=== PATIENT | female | born 1940 | race African-American/Black ===

== ENCOUNTER → 2016-07-08 | Outpatient (CLI) | payer MEDICARE, BC ==
[2016-07-08 09:26] LABS: ABSOLUTE BASOPHILS # (AUTO) 0.1 10^3/uL (0.0-0.2); ABSOLUTE EOSINOPHILS # (AUTO) 0.8 10^3/uL (0.0-0.6); ABSOLUTE LYMPHOCYTES (AUTO) 2.6 10^3/uL (0.5-4.7); ABSOLUTE NEUT (AUTO) 5.9 10^3/uL (1.7-8.2); BASOPHILS % (AUTO) 0.8 % (0-2); EOSINOPHILS % (AUTO) 7.7 % (0-6); HEMOGLOBIN 10.9 g/dL (12.0-15.5); HGB HCT DIFFERENCE -1.3; LYMPHOCYTES % (AUTO) 25.4 % (13-45); MEAN CORPUSCULAR HEMOGLOBIN 26.5 pg (27.0-33.4); MEAN CORPUSCULAR HGB CONC 32.1 g/dL (32.0-36.0); MEAN CORPUSCULAR VOLUME 83 fl (80-97); MONOCYTES % (AUTO) 9.2 % (3-13); RED BLOOD COUNT 4.11 10^6/uL (3.72-5.28); RED CELL DISTRIBUTION WIDTH 15.3 % (11.5-14.0); SEGMENTED NEUTROPHILS % (AUTO) 56.9 % (42-78); WHITE BLOOD COUNT 10.4 10^3/uL (4.0-10.5)
[2016-07-08 09:57] LABS: ALANINE AMINOTRANSFERASE 30 U/L (9-52); ALBUMIN 3.8 g/dL (3.5-5.0); ALKALINE PHOSPHATASE 136 U/L (38-126); ANION GAP 16 (5-19); ASPARTATE AMINO TRANSFERASE 16 U/L (14-36); BILIRUBIN,DIRECT 0.2 mg/dL (0.0-0.4); BILIRUBIN,TOTAL 0.3 mg/dL (0.2-1.3); BLOOD UREA NITROGEN 19 mg/dL (7-20); CALCIUM 9.4 mg/dL (8.4-10.2); CARBON DIOXIDE 27 mmol/L (22-30); CHLORIDE 104 mmol/L (98-107); CHOLESTEROL 167.72 mg/dL (0-200); CREATININE RESULT 1.08 mg/dL (0.52-1.25); Direct HDL 47 mg/dL (>40); GLUCOSE 85 mg/dL (75-110); POTASSIUM 4.2 mmol/L (3.6-5.0); SODIUM 146.7 mmol/L (137-145); TOTAL PROTEIN 6.7 g/dL (6.3-8.2); TRIGLYCERIDES 139 mg/dL (<150)
[2016-07-08 10:07] LABS: DIRECT LDL 93 mg/dL (<100)
== END ==
LOC: OD 08:17
PROVIDERS: ATTEND Internal Medicine
DX: E11.9 Type 2 diabetes mellitus without complications (principal); I10 Essential (primary) hypertension; E78.5 Hyperlipidemia, unspecified; R53.83 Other fatigue
CPT/HCPCS: 36415; 80053; 80061; 82043; 83036; 84443; 85025

== ENCOUNTER → 2016-08-13 | Outpatient (CLI) | payer MEDICARE, BC | LOC: RAD 12:11 | PROVIDERS: ATTEND Internal Medicine Nephrology | DX: N18.3 Chronic kidney disease, stage 3 (moderate) (principal); R80.9 Proteinuria, unspecified | CPT/HCPCS: 76770 ==

== ENCOUNTER → 2016-09-10 | Outpatient (CLI) | payer MEDICARE, BC ==
[2016-09-10 08:49] LABS: HEMATOCRIT 33.2 % (36.0-47.0); HEMOGLOBIN 10.6 g/dL (12.0-15.5); HGB HCT DIFFERENCE -1.4; MEAN CORPUSCULAR HEMOGLOBIN 26.4 pg (27.0-33.4); MEAN CORPUSCULAR VOLUME 82 fl (80-97); RED BLOOD COUNT 4.03 10^6/uL (3.72-5.28); RED CELL DISTRIBUTION WIDTH 14.8 % (11.5-14.0); WHITE BLOOD COUNT 11.1 10^3/uL (4.0-10.5)
[2016-09-10 09:18] LABS: ANION GAP 12 (5-19); BLOOD UREA NITROGEN 25 mg/dL (7-20); CALCIUM 9.4 mg/dL (8.4-10.2); CARBON DIOXIDE 27 mmol/L (22-30); CHLORIDE 104 mmol/L (98-107); GLUCOSE 59 mg/dL (75-110); MAGNESIUM 1.4 mg/dL (1.6-2.3); POTASSIUM 4.5 mmol/L (3.6-5.0); SODIUM 143.2 mmol/L (137-145)
[2016-09-10 10:08] LABS: APPEARANCE,URINE SLIGHTLY-CLOUDY; BILIRUBIN,URINE NEGATIVE (NEGATIVE); GLUCOSE, URINE NEGATIVE (NEGATIVE); KETONES,URINE NEGATIVE (NEGATIVE); LEUKOCYTE ESTERASE,URINE SMALL (NEGATIVE); NITRITE,URINE NEGATIVE (NEGATIVE); PROTEIN,URINE 30 mg/dL (NEGATIVE); URINE SPECIFIC GRAVITY 1.011; UROBILINOGEN,URINE NEGATIVE mg/dL (<2.0)
== END ==
LOC: OD 07:56
PROVIDERS: ATTEND Internal Medicine Nephrology
DX: E11.22 Type 2 diabetes mellitus with diabetic chronic kidney disease (principal); I12.9 Hypertensive chronic kidney disease with stage 1 through stage 4 chronic kidney disease, or unspecified chronic kidney disease; N18.3 Chronic kidney disease, stage 3 (moderate); R80.9 Proteinuria, unspecified
CPT/HCPCS: 36415; 80048; 81001; 83735; 85027

== ENCOUNTER 2016-10-26 04:45 | Inpatient (IN) | payer MEDICARE, BC, OTHER ==
--- NOTE | 2016-10-26 05:21 | ER Document Report ---
ED GI/ - General Chief Complaint: Abdominal Pain Stated Complaint: ABDOMINAL PAIN Time Seen by Provider: 10/26/16 04:57 Mode of Arrival: Ambulatory Information source: Patient Notes: 76-year-old female presents to ED with abdominal pain in the epigastric area down to the umbilicus since 1900 yesterday. She states she took some Pepto- Bismol with no relief. She denies any cardiac history. She has no nausea vomiting or diarrhea. States she is having bowel movements as normal with no constipation. TRAVEL OUTSIDE OF THE [place] IN LAST 30 DAYS: No - HPI Patient complains to provider of: Abdominal pain Onset: Yesterday Timing/Duration: Gradual, Worse Quality of pain: Sharp Severity at maximum: Moderate Severity in ED: Moderate Pain Level: 4 Location: Epigastric, LUQ, RUQ Vaginal bleeding (Compared to normal period): None Associated symptoms: denies: Chest pain, Constipation, Diarrhea, Nausea, Urinary hesitancy, Urinary frequency, Urinary retention, Urinary urgency, Vomiting Exacerbated by: Denies Relieved by: Denies Similar symptoms previously: No Recently seen / treated by doctor: Yes - Related Data Allergies/Adverse Reactions: No Known Allergies Allergy (Unverified 12/22/12 20:42) Past Medical History - General Information source: Patient - Social History Smoking Status: Never Smoker Cigarette use (# per day): No Chew tobacco use (# tins/day): No Smoking Education Provided: No Frequency of alcohol use: None Drug Abuse: None Occupation: retired Lives with: Family Family History: Arthritis, DM, Malignancy. denies: CAD, COPD, CVA, Hyperlipidemia, Hypertension, Thyroid Disfunction Patient has suicidal ideation: No Patient has homicidal ideation: No - Past Medical History Cardiac Medical History: Reports: Hx Hypertension - medicated Pulmonary Medical History: Reports: None EENT Medical History: Reports: None Neurological Medical History: Reports: None Endocrine Medical History: Reports: Hx Diabetes Mellitus Type 2, Hx Hypothyroidism Renal/ Medical History: Reports: None Malignancy Medical History: Reports: None GI Medical History: Reports: Hx Gastritis, Hx Gastroesophageal Reflux Disease, Hx Colonoscopy, Hx Endoscopy Musculoskeltal Medical History: Reports Hx Arthritis - KNEE Skin Medical History: Reports None Psychiatric Medical History: Reports: None Traumatic Medical History: Reports: None Infectious Medical History: Reports: None Past Surgical History: Reports: Hx Cholecystectomy, Hx Hysterectomy, Hx Thyroid Surgery - part of thyroid removed - Immunizations Hx Diphtheria, Pertussis, Tetanus Vaccination: No Review of Systems - Review of Systems Constitutional: No symptoms reported EENT: No symptoms reported Cardiovascular: No symptoms reported Respiratory: No symptoms reported Gastrointestinal: Abdomen distended, Abdominal pain. denies: Diarrhea, Nausea, Vomiting, Constipation, Poor appetite Genitourinary: No symptoms reported Female Genitourinary: No symptoms reported Musculoskeletal: No symptoms reported Skin: No symptoms reported Hematologic/Lymphatic: No symptoms reported Neurological/Psychological: No symptoms reported -: Yes All other systems reviewed and negative Physical Exam - Vital signs Vitals: Temp Pulse Resp BP Pulse Ox 98.8 F 109 H 20 141/85 H 97 10/26/16 04:45 10/26/16 04:45 10/26/16 04:45 10/26/16 04:45 10/26/16 04:45 Interpretation: Normal - General General appearance: Appears well, Alert - HEENT Head: Normocephalic, Atraumatic Eyes: Normal Pupils: PERRL - Respiratory Respiratory status: No respiratory distress Chest status: Nontender Breath sounds: Normal Chest palpation: Normal - Cardiovascular Rhythm: Regular Heart sounds: Normal auscultation Murmur: No - Abdominal Inspection: Normal Distension: Distended Bowel sounds: Normal Tenderness: Tender - epigastric right and left upper quadrant pain Organomegaly: No organomegaly - Back Back: Normal, Nontender - Extremities General upper extremity: Normal inspection, Nontender, Normal color, Normal ROM , Normal temperature General lower extremity: Normal inspection, Nontender, Normal color, Normal ROM , Normal temperature, Normal weight bearing. No: Tutu's sign - Neurological Neuro grossly intact: Yes Cognition: Normal Orientation: AAOx4 Raulito Coma Scale Eye Opening: Spontaneous Cromwell Coma Scale Verbal: Oriented Cromwell Coma Scale Motor: Obeys Commands Cromwell Coma Scale Total: 15 Speech: Normal Motor strength normal: LUE, RUE, LLE, RLE Sensory: Normal - Psychological Associated symptoms: Normal affect, Normal mood - Skin Skin Temperature: Warm Skin Moisture: Dry Skin Color: Normal Course - Re-evaluation Re-evalutation: 10/26/16 07:[address] Carrasco with the results of the lab and CT. CT shows a pericarditis as well as an abdominal hernia and adrenal adenoma. Patient also has an elevated white count. He stated the patient would need to be admitted. Patient's primary doctor is Al Russo MD. As hospitalist or covering suggestive it on the weekend, Dr. Cesar was consulted who stated that I should consult Dr. Fowler. Dr. Fowler consulted and patient will be admitted to [facility] for pericarditis. - Vital Signs Vital signs: Temp Pulse Resp BP Pulse Ox 98.8 F 109 H 33 H 154/81 H 97 10/26/16 04:45 10/26/16 04:45 10/26/16 06:01 10/26/16 06:01 10/26/16 06:01 - Laboratory Result Diagrams: 10/26/16 05:20 10/26/16 05:20 Laboratory results interpreted by me: 10/26/16 10/26/16 10/26/16 05:20 05:20 05:29 WBC 16.1 H Hgb 10.7 L Hct 32.8 L MCH 26.7 L RDW 15.0 H Lymphocytes % 11.0 L Absolute Neutrophils 12.4 H Absolute Monocytes 1.7 H Carbon Dioxide 21 L BUN 30 H Est GFR ( Amer) 56 L Est GFR (Non-Af Amer) 47 L Glucose 191 H Alkaline Phosphatase 148 H Urine Protein 100 H Ur Leukocyte Esterase TRACE H - Diagnostic Test Radiology reviewed: Image reviewed, Reports reviewed - EKG Interpretation by Me EKG shows normal: Sinus rhythm Discharge - Discharge Clinical Impression: Epigastric abdominal pain Pericarditis Qualifiers: Pericarditis type: unspecified type Chronicity: acute Qualified Code(s): I30.9 - Acute pericarditis, unspecified Disposition: ADMITTED INPATIENT Admitting Provider: Shelia fowler Unit Admitted: [facility]
[2016-10-26 05:44] LABS: ABSOLUTE BASOPHILS # (AUTO) 0.1 10^3/uL (0.0-0.2); ABSOLUTE EOSINOPHILS # (AUTO) 0.1 10^3/uL (0.0-0.6); ABSOLUTE LYMPHOCYTES (AUTO) 1.8 10^3/uL (0.5-4.7); ABSOLUTE MONOCYTES (AUTO) 1.7 10^3/uL (0.1-1.4); ABSOLUTE NEUT (AUTO) 12.4 10^3/uL (1.7-8.2); BASOPHILS % (AUTO) 0.6 % (0-2); EOSINOPHILS % (AUTO) 0.8 % (0-6); HEMATOCRIT 32.8 % (36.0-47.0); HEMOGLOBIN 10.7 g/dL (12.0-15.5); HGB HCT DIFFERENCE -0.7; MEAN CORPUSCULAR HEMOGLOBIN 26.7 pg (27.0-33.4); MEAN CORPUSCULAR HGB CONC 32.6 g/dL (32.0-36.0); MEAN CORPUSCULAR VOLUME 82 fl (80-97); MONOCYTES % (AUTO) 10.5 % (3-13); SEGMENTED NEUTROPHILS % (AUTO) 77.1 % (42-78); WHITE BLOOD COUNT 16.1 10^3/uL (4.0-10.5)
[2016-10-26 05:50] LABS: APPEARANCE,URINE CLEAR; BILIRUBIN,URINE NEGATIVE (NEGATIVE); GLUCOSE, URINE NEGATIVE (NEGATIVE); KETONES,URINE NEGATIVE (NEGATIVE); LEUKOCYTE ESTERASE,URINE TRACE (NEGATIVE); NITRITE,URINE NEGATIVE (NEGATIVE); PROTEIN,URINE 100 mg/dL (NEGATIVE); URINE SPECIFIC GRAVITY 1.014; UROBILINOGEN,URINE NEGATIVE mg/dL (<2.0)
[2016-10-26 06:03] LABS: ALANINE AMINOTRANSFERASE 28 U/L (9-52); ALKALINE PHOSPHATASE 148 U/L (38-126); ANION GAP 15 (5-19); ASPARTATE AMINO TRANSFERASE 17 U/L (14-36); BILIRUBIN,DIRECT 0.3 mg/dL (0.0-0.4); BILIRUBIN,TOTAL 0.4 mg/dL (0.2-1.3); BLOOD UREA NITROGEN 30 mg/dL (7-20); CALCIUM 9.5 mg/dL (8.4-10.2); CARBON DIOXIDE 21 mmol/L (22-30); CHLORIDE 106 mmol/L (98-107); CREATININE RESULT 1.13 mg/dL (0.52-1.25); GLUCOSE 191 mg/dL (75-110); LIPASE 64.9 U/L (23-300); POTASSIUM 4.5 mmol/L (3.6-5.0); TOTAL PROTEIN 7.2 g/dL (6.3-8.2)
--- NOTE | 2016-10-26 07:02 | RADIOLOGY REPORT (SQ) ---
EXAM DESCRIPTION: CT ABD/PELVIS WITH IV ONLY COMPLETED DATE/TIME: 10/26/2016 6:36 am REASON FOR STUDY: abdominal pain and distention COMPARISON: None. TECHNIQUE: CT scan of the abdomen and pelvis performed using helical scanning technique with dynamic intravenous contrast injection. No oral contrast. Images reviewed with lung, soft tissue, and bone windows. Reconstructed coronal and sagittal MPR images reviewed. Delayed images for evaluation of the urinary system also acquired. All images stored on PACS. All CT scanners at this facility use dose modulation, iterative reconstruction, and/or weight based d osing when appropriate to reduce radiation dose to as low as reasonably achievable (ALARA). [facility]: Dose Right [facility]: CareDose [facility]: Dose Right [facility]: Teradose 4D [facility]: [email or web address] CONTRAST TYPE AND DOSE: contrast/concentration: Isovue 370.00 mg/ml; Total Contrast Delivered: 100.0 ml; Total Saline Delivered: 72.0 ml RENAL FUNCTION: Creatinine 1.1 RADIATION DOSE: Up-to-date CT equipment and radiation dose reduction techniques were employed. CTDIv ol: 20.8 - 21.0 mGy. DLP: 2185 mGy-cm.. LIMITATIONS: None. FINDINGS: LOWER CHEST: No significant findings. No nodules or infiltrates. Small hiatal hernia. Mo derate pericardial fluid. LIVER: Normal size. No masses. No dilated ducts. SPLEEN: Normal size. No focal lesions. PANCREAS: No masses. No significant calcifications. No adjacent inflammation or peripancreatic fluid collections. Pancreatic duct not dilated. GALLBLADDER: Surgically absent. ADRENAL GLANDS: 1.1 cm likely left adrenal adenoma ; relative adrenal washout measures 47-67%. RIGHT KIDNEY AND URETER: No solid masses. No significant calcifications. No hydronephrosis or hyd roureter. 3.2 cm exophytic cyst medial to the right kidney. LEFT KIDNEY AND URETER: No solid masses. No significant calcifications. No hydronephrosis or hydr oureter. AORTA AND VESSELS: No aneurysm. No dissection. Renal arteries, SMA, celiac without stenosis. RETROPERITONEUM: No retroperitoneal adenopathy, hemorrhage or masses. BOWEL AND PERITONEAL CAVITY: No masses or inflammatory changes. No free fluid or peritoneal masses. APPENDIX: Normal. PELVIS: No mass. No free fluid. Normal bladder. ABDOMINAL WALL: 10 cm ventral herniation of small bowel along the midline of the anterior pelvic wall without evidence of obstruction or other complication. Smaller fat only herniation measuring 3 cm s lightly inferior to the small bowel herniation. BONES: Grade 1 degenerative L4 and L3 anterolisthesis with moderate spondylosis. A small to moderate desiccated disc bulges between the L2 and S1 levels. Moderate lower thoracic disc desiccation. OTHER: No other significant finding. IMPRESSION: 1. Small bowel herniation of the anterior pelvic wall without evidence of further compl ication. 2. Moderate pericarditis pattern. TECHNICAL DOCUMENTATION: JOB ID: [id number] Quality ID # [id number]: Final reports with documentation of one or more dose reduction techniques (e.g., Au tomated exposure control, adjustment of the mA and/or kV according to patient size, use of iterative reconstruction technique) 2010 [employer]- All Rights Reserved
[2016-10-26 08:05] LABS: TROPONIN I < 0.012 ng/mL
[2016-10-26] MEDS ORDERED: MAGNESIUM HYDROXIDE SUSP 30 ML UDCUP PO PRN (08:43)
[2016-10-26] MEDS ORDERED: ACETAMINOPHEN 325 MG TABLET PO PRN (08:43)
[2016-10-26] MEDS ORDERED: ONDANSETRON HCL INJ/PF 4 MG/2 ML SDV IV PRN (08:49)
[2016-10-26] MEDS ORDERED: KETOROLAC TROMETHAMINE INJ/PF 30 MG/1 ML SDV IV PRN (08:52)
--- NOTE | 2016-10-26 08:52 | RADIOLOGY REPORT (SQ) ---
EXAM DESCRIPTION: CHEST PA/LAT COMPLETED DATE/TIME: 10/26/2016 8:45 am REASON FOR STUDY: pericardial effusion COMPARISON: None. NUMBER OF VIEWS: Two view. TECHNIQUE: Frontal and lateral radiographic views of the chest acquired. LIMITATIONS: None. FINDINGS: LUNGS AND PLEURA: No opacities, masses or pneumothorax. No pleural effusion. MEDIASTINUM AND HILAR STRUCTURES: No masses. No contour abnormalities. HEART AND VASCULAR STRUCTURES: Heart enlarged without failure. Aorta normal for age. BONES: No acute findings. HARDWARE: None in the chest. OTHER: No other significant finding. IMPRESSION: CARDIAC ENLARGEMENT WITHOUT FAILURE. TECHNICAL DOCUMENTATION: JOB ID: [id number] [employer]- All Rights Reserved
[2016-10-26 09:19] LABS: MAGNESIUM 1.6 mg/dL (1.6-2.3)
[2016-10-26 10:09] LABS: PROTHROMBIN TIME 13.2 SEC (11.4-15.4)
[2016-10-26 10:10] LABS: PARTIAL THROMBOPLASTIN TIME 30.2 SEC (23.5-35.8)
[2016-10-26] MEDS: PANTOPRAZOLE SODIUM 40 MG VIAL IV SCH ×2 (11:11→21:30)
[2016-10-26] MEDS: ENOXAPARIN SODIUM INJ 30 MG/0.3 ML DISP.SYRIN SUBCUT SCH (11:12)
[2016-10-26] MEDS: DOCUSATE SODIUM 100 MG CAPSULE PO SCH (11:20)
[2016-10-26] MEDS ORDERED: DEXTROSE 50%-WATER 25 GM/50 ML DISP.SYRIN IV PRN ×2 (11:37)
[2016-10-26] MEDS ORDERED: DEXTROSE 40% GEL 15 GM TUBE PO PRN ×2 (11:37)
[2016-10-26] MEDS ORDERED: GLUCAGON,HUMAN RECOMB 1 MG INJ IM PRN (11:37)
[2016-10-26] MEDS ORDERED: LEVOTHYROXINE SODIUM 0.05 MG TABLET PO ONE (12:15)
[2016-10-26] MEDS: INSULIN LISPRO 100 UNIT/ML 3 ML VIAL SUBCUT PRN ×3 (12:42→22:54)
--- NOTE | 2016-10-26 12:51 | XCELERA REPORT ---
[address] [address] Transthoracic Echocardiogram Report Name: ROSEANNA HERNANDEZ Age: 76 yrs Gender: Female : 1940 Patient Status: Inpatient Patient Location: [id number] Study Date: 10/26/2016 10:30 AM Height: 61 in Weight: 220 lb BSA: 2.0 m2 Procedure: A complete two-dimensional transthoracic echocardiogram was performed (2D, M-mode, spectral and color flow Doppler). The study was technically adequate with some images being suboptimal in quality. Reason For Study: pericardial effusion; Estrella already meme'd Ordering Physician: MEHNAZ PIMENTEL Performed By: Alessia Harrison Interpretation Summary The left ventricular ejection fraction is normal. Doppler measurements suggest pseudonormalized left ventricular relaxation, which is associated with grade II/IV or mild to moderate diastolic dysfunction There is mild concentric left ventricular hypertrophy. The left ventricle is grossly normal size. Wall motion cannot be accurately commented on, but no definite regional wall motion abnormalities noted. The right ventricle is mildly dilated. The right ventricular systolic function is normal. The right atrium is normal in size The left atrial size is normal. There is no mitral valve stenosis. There is a trace amount of mitral regurgitation There is no aortic valve stenosis No aortic regurgitation is present. There is a trace to mild amount of tricuspid regurgitation There is mild pulmonary hypertension by echo Right ventricular systolic pressure is estimated to be elevated at 30- 40mmHg. The aortic root is not well visualized but is probably normal size. The inferior vena cava appeared normal and decreased > 50% with respiration (RAP 5-10 mmHg) Small pericardial effusion. There are no echocardiographic or Doppler indications for cardiac tamponade MMode/2D Measurements \T\ Calculations RVDd: 4.1 cm LVIDd: 3.4 cm FS: 32.8 % Ao root diam: 2.4 cm IVSd: 1.1 cm LVIDs: 2.3 cm EDV(Teich): 48.7 ml LVPWd: 1.1 cm ESV(Teich): 18.4 ml Ao root area: 4.5 cm2 EF(Teich): 62.3 % LA dimension: 3.1 cm Doppler Measurements \T\ Calculations MV E max hudson: MV P1/2t max hudson: Ao V2 max: LV V1 max P.0 cm/sec 79.5 cm/sec 114.0 cm/sec 4.3 mmHg MV A max hudson: MV P1/2t: 60.8 msec Ao max PG: LV V1 max: 111.6 cm/sec 5.2 mmHg 103.7 cm/sec MV E/A: 0.70 MVA(P1/2t): 3.6 cm2 MV dec slope: 382.5 cm/sec2 MV dec time: 0.20 sec PA V2 max: TR max hudson: 84.9 cm/sec 250.8 cm/sec PA max P.9 mmHgTR max P.2 mmHg Left Ventricle The left ventricle is grossly normal size. There is mild concentric left ventricular hypertrophy. The left ventricular ejection fraction is normal. Doppler measurements suggest pseudonormalized left ventricular relaxation, which is associated with grade II/IV or mild to moderate diastolic dysfunction. Wall motion cannot be accurately commented on, but no definite regional wall motion abnormalities noted. Right Ventricle The right ventricle is mildly dilated. There is normal right ventricular wall thickness. The right ventricular systolic function is normal. Atria The right atrium is normal in size. The left atrial size is normal. Interarterial septum not well visualized and not well dopplered. Cannot comment on ASD/PFO presence. Mitral Valve The mitral valve is grossly normal. There is no mitral valve stenosis. There is a trace amount of mitral regurgitation. Aortic Valve The aortic valve is grossly normal. There is no aortic valve stenosis. No aortic regurgitation is present. Tricuspid Valve The tricuspid valve is not well visualized, but is grossly normal. There is no tricuspid stenosis. There is a trace to mild amount of tricuspid regurgitation. There is mild pulmonary hypertension by echo. Right ventricular systolic pressure is estimated to be elevated at 30-40mmHg. Pulmonic Valve The pulmonic valve is not well visualized. Great Vessels The aortic root is not well visualized but is probably normal size. The inferior vena cava appeared normal and decreased > 50% with respiration (RAP 5-10 mmHg). Effusions Small pericardial effusion. There are no echocardiographic or Doppler indications for cardiac tamponade. : MEHNAZ PIMENTEL > Saroj De La Rosa
[2016-10-26 14:38] LABS: CREATINE KINASE MB 0.81 ng/mL (<4.55)
[2016-10-26 14:42] LABS: TROPONIN I < 0.012 ng/mL
--- NOTE | 2016-10-26 15:17 | EKG REPORT ---
SEVERITY:- BORDERLINE ECG - SINUS RHYTHM BORDERLINE ST ELEVATION, INFERIOR LEADS : Confirmed by: Ana Lazaro MD 26-Oct-2016 15:15:33
[2016-10-26] MEDS: NORMAL SALINE 1000 ML 1,000 ML IV PRN (15:24)
--- NOTE | 2016-10-26 15:35 | PDOC H&P ---
History of Present Illness Admission Date/PCP: 10/26/16 08:44 dr farah Patient complains of: abdominal pain History of Present Illness: ROSEANNA HERNANDEZ is a 76 year old female presents from home with sudden onset of epigastric and Rt upper abdominal pain last night after attending [employer]. states she ate chicken and veggies with her before going to [employer] and no symptoms for several hours; only after returning home did the symptoms begin. described as "hardness" across the upper abdomen with asct'd bloating and belching but no nausea or vomiting, chest pain, palpitations, POWELL, dizziness , swollen legs, calf pain, change in bowel habits or character/consistency of stool, dysuria, difficulty swallowing, recent travel, sick contacts, fevers or chills. notes relieved with Pepto and consuming cake and ice cream, worse when lying on her left side. She reports EGD by dr singleton in 05/2016 and Bx's confirmed H Pylori but she denies PUD or gastritis at the time. she was treated for 3 wks with "3 medicines, one was an abx but not sure about the rest " and underwent breath test this past friday in her office that showed eradication of the H. Pylori. 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 she's never had a SBO and is unaware of the ventral hernia seen on CT today. eval in ED shows elevated WBCs and "moderate pericardial effusion" with "moderate pericarditis pattern" though no mention of enhancing pericardium, small hiatal hernia, small bowel herniation of anterior pelvic wall without incarceration and small fat containing hernia just distal/below that also without inflammatory changes; ecg shows borderline ST elevation, J point elevation in inferolateral leads and no old for comparison. So, we were asked to admit for acute pericarditis. Past Medical History Cardiac Medical History: Reports: Hypertension - medicated Denies: Congestive Heart Failure, Coronary Artery Disease, Myocardial Infarction Pulmonary Medical History: Reports: None EENT Medical History: Reports: None Neurological Medical History: Reports: None Endocrine Medical History: Reports: Diabetes Mellitus Type 2, Hypothyroidism Renal/ Medical History: Reports: Chronic Kidney Disease - stage [address] rodrigues Malignancy Medical History: Reports: None GI Medical History: Reports: Gastroesophageal Reflux Disease, Hiatal Hernia, Other - H Pylori infection Musculoskeltal Medical History: Reports: Arthritis - KNEE Skin Medical History: Reports: None Psychiatric Medical History: Reports: None Traumatic Medical History: Reports: None Hematology: Denies: Anemia, Sickle Cell Disease Infectious Medical History: Reports: None Past Surgical History Past Surgical History: Reports: Cholecystectomy, Hysterectomy Denies: Amputation Social History Information Source: Patient Lives with: Family Smoking Status: Never Smoker Frequency of Alcohol Use: None Hx Recreational Drug Use: No Drugs: None Hx Prescription Drug Abuse: No - Advance Directive Resuscitation Status: Full Code Family History Family History: Arthritis, DM, Malignancy. denies: CAD, COPD, CVA, Hyperlipidemia, Hypertension, Thyroid Disfunction Parental Family History Reviewed: Yes Children Family History Reviewed: Yes Sibling(s) Family History Reviewed.: Yes Medication/Allergy Home Medications: Aspirin [Aspirin 81 mg Chewable Tablet] 81 mg PO DAILY 10/26/16 Carvedilol [Coreg 12.5 mg Tablet] 12.5 mg PO Q12 10/26/16 Insulin Glargine,Hum.rec.anlog [Lantus Solostar] 66 unit SQ DAILY 10/26/16 Levothyroxine Sodium [Synthroid] 50 mcg PO DAILY 10/26/16 Losartan/Hydrochlorothiazide [Hyzaar 100-25 Tablet] 1 each PO DAILY 10/26/16 Metformin HCl [Glucophage] 1,000 mg PO Q12 10/26/16 Allergies/Adverse Reactions: No Known Allergies Allergy (Unverified 12/22/12 20:42) Review of Systems All systems: reviewed and no additional remarkable complaints except as stated - all systems reviewed, see HPI, remaining systems negative Physical Exam Vital Signs: Temp Pulse Resp BP Pulse Ox 100.1 F 104 H 22 H 147/69 H 98 10/26/16 11:27 10/26/16 14:00 10/26/16 11:27 10/26/16 11:27 10/26/16 11:27 Intake & Output 10/25/16 10/26/16 10/27/16 06:59 06:59 06:59 Weight 100 kg General appearance: PRESENT: no acute distress, morbidly obese, well-developed, well-nourished Head exam: PRESENT: atraumatic, normocephalic Eye exam: PRESENT: EOMI. ABSENT: conjunctival injection, scleral icterus Mouth exam: PRESENT: moist, neck supple Neck exam: PRESENT: full ROM. ABSENT: JVD, lymphadenopathy, meningismus, tenderness, thyromegaly, tracheal deviation Respiratory exam: PRESENT: clear to auscultation hermelinda, unlabored. ABSENT: accessory muscle use, chest wall tenderness Cardiovascular exam: PRESENT: tachycardia - sinus tach on monitor Pulses: PRESENT: normal carotid pulses, normal radial pulses, normal dorsalis pedis pul Vascular exam: PRESENT: normal capillary refill GI/Abdominal exam: PRESENT: hernia - non reducible fat containing anterior wall abdominal hernia just left of the umbilicus along the long vertical scar, no overlying erythema or heat, nontender to touch, no bowel sounds in the hernia itself;, normal bowel sounds, soft, tenderness - mild epigastric and RUQ tender to palpation, other - misshapen by two long vertical scars from prior surgery, large pannus. ABSENT: ascites, distended, firm, guarding Extremities exam: PRESENT: full ROM, pedal edema - trace ankle edema. ABSENT: calf tenderness, clubbing Musculoskeletal exam: PRESENT: ambulatory, full ROM Neurological exam: PRESENT: alert, awake, oriented to person, oriented to place , oriented to time, oriented to situation Psychiatric exam: PRESENT: appropriate affect, normal mood Skin exam: PRESENT: dry, warm Results Laboratory Results: 10/26/16 10/26/16 14:05 14:05 Creatine Kinase 108 CK-MB (CK-2) 0.81 Troponin I < 0.012 Impressions: Abdomen/Pelvis CT 10/26/16 05:15 IMPRESSION: 1. Small bowel herniation of the anterior pelvic wall without evidence of further complication. 2. Moderate pericarditis pattern. Chest X-Ray 10/26/16 07:15 IMPRESSION: CARDIAC ENLARGEMENT WITHOUT FAILURE. Status: Image reviewed by me - not clear to me whether the effusion is real or artifact but no enhancing of the pericardium itself; agree with remaining exam - no clear source for her abdominal pain Assessment & Plan - Diagnosis (1) Epigastric abdominal pain Is this a current diagnosis for this admission?: YesPlan: presenting complaint and unclear etiology. her symptoms don't really fit clearly into any on thing though clearly her recent bout of H Pylori leads me to believe this is more GI than anything. she has a very atypical presentation and non specific lab findings so far. lipase and amylase are negative, LFTs negative, troponin negative while ecg is non specific, no evidence for cell or ischemia as her K and Phos both normal and only mild acidosis; cbc shows monocytosis but very mild and no worsening of her chronic anemia and no thrombocytosis or -penia. imaging is nondiagnostic and I think the pericarditis is a stretch and clearly atypical symptoms for this, certainly no evidence for tamponade; her hernia is no where near her pain and nontender on attempts to reduce it with no change in her bowel habits. will admit for bowel rest, analgesics and antiemetics, repeat abd exam and expectant management for now. ck stat CRP and lactic acid. send stool studies for culture, wbcs and occult blood. (2) Pericarditis Qualifiers: Pericarditis type: unspecified type Chronicity: acute Qualified Code(s): I30.9 - Acute pericarditis, unspecified; M06.9 - Rheumatoid arthritis, unspecified Is this a current diagnosis for this admission?: YesPlan: I do not believe she has pericarditis as her symptoms simply don't align with this diagnosis. I don't doubt that she may have a viral illness due to elevated monocytes. f/u crp, ck uric acid due to her CKD and ck echo - dr robi valentine'd. trend Ping and provide toradol for pain relief. (3) Leukocytosis, unspecified Qualifiers: Leukocytosis type: unspecified Qualified Code(s): D72.829 - Elevated white blood cell count, unspecified Is this a current diagnosis for this admission?: YesPlan: mixed bag of neutrophils and monocytes of unclear etiology and significance; certainly could be viral gastroenteritis. trend CBC, other eval as noted above (4) Obesity Qualifiers: Obesity type: unspecified obesity type Obesity classification: unspecified obesity classification Serious obesity comorbidity presence: unspecified whether serious comorbidity present Qualified Code(s): E66.9 - Obesity, unspecified Is this a current diagnosis for this admission?: YesPlan: makes for a difficult abdominal exam (6) HTN (hypertension) Qualifiers: Hypertension type: essential hypertension Qualified Code(s): I10 - Essential (primary) hypertension Is this a current diagnosis for this admission?: YesPlan: continue home regimen and titrate as needed, may hold diuretics until we sort her out a bit more (7) CKD stage 3 secondary to diabetes Is this a current diagnosis for this admission?: YesPlan: appears to be at baseline (8) Diabetes Qualifiers: Diabetes mellitus type: type 2 Diabetes mellitus complication status: with kidney complications Diabetes mellitus complication detail: with microalbuminuria Diabetes mellitus long term care pharmacist insulin use: with [facility] use Qualified Code(s): E11.29 - Type 2 diabetes mellitus with other diabetic kidney complication; R80.9 - Proteinuria, unspecified; Z79.4 - terminal manager (current) use of insulin Is this a current diagnosis for this admission?: YesPlan: hold long acting for now and cover with SSI, adjust as needed (9) Hypothyroidism Qualifiers: Hypothyroidism type: unspecified Qualified Code(s): E03.9 - Hypothyroidism, unspecified Is this a current diagnosis for this admission?: YesPlan: ck TSH and continue home meds (10) Abdominal hernia without obstruction and without gangrene Qualifiers: Hernia type: incisional Qualified Code(s): K43.2 - Incisional hernia without obstruction or gangrene Is this a current diagnosis for this admission?: YesPlan: patient was unaware of her hernia but it seems asymptomatic and doubt contributing to her presentation. will consult general surgery for their opinion on how to manage going forward. - Time Time Spent: Greater than 70 Minutes Medications reviewed and adjusted accordingly: Yes Anticipated discharge: Home Within: within 48 hours
--- NOTE | 2016-10-26 20:24 | CONSULTATION REPORT E ---
Consultation Report NAME: ROSEANNA HERNANDEZ : 1940 AGE: 76Y DATE: 10/26/2016 308 A TO: ALEJANDRO SANON M.D. FROM: MEHNAZ PIMENTEL M.D. Requesting Physician CHIEF COMPLAINT/HISTORY OF PRESENT ILLNESS: Consultation from the hospitalist group for evaluation and management of abdominal pain and chest pain. The patient was admitted through the emergency room with a history of severe abdominal pain, and abdominal pain started 1 or 2 days ago, mostly in the chest and upper chest area. After coming to emergency room, she underwent evaluation which revealed severe pericarditis on the CT scan . Incidentally she was found to have an incisional hernia in the lower abdomen so surgical consultation is to evaluate for incisional hernia. PAST MEDICAL HISTORY: 1. History of hypertension. 2. History of diabetes. 3. History of osteoarthritis. REVIEW OF SYSTEMS: As per examination. PHYSICAL EXAMINATION: GENERAL: She is awake, alert and oriented. HEAD/NECK: Revealed no lymphadenopathy or masses. RESPIRATORY: Both lungs good air entry. CARDIOVASCULAR: Both heart sounds regular. No murmurs or gallops. ABDOMINAL: She has a soft abdomen. She does have a palpable incisional hernia in the lower abdomen in the pelvic area which is reducible and nontender at this point. DIAGNOSTIC DATA: I reviewed her CT scan which revealed pericarditis and also an incisional hernia in the lower abdomen with no incarceration, no obstruction. IMPRESSION OVERALL: Incisional hernia, uncomplicated. Her pain in the chest and epigastric area is mostly from pericarditis, with no surgical issue at this point. PLAN: Conservative management only, no surgical intervention necessary at this point. We will follow the patient as needed from a surgical point. DICTATING PHYSICIAN: ALEJANDRO SANON M.D. [id number] PHY#: [id number] ID: [id number] JOB#: [id number] ACCT: [id number] cc:ALEJANDRO SANON M.D. > [facility]
[2016-10-26 20:31] LABS: CREATINE KINASE MB 0.49 ng/mL (<4.55)
[2016-10-26 20:32] LABS: TROPONIN I < 0.012 ng/mL
[2016-10-26] MEDS: CARVEDILOL 12.5 MG TABLET PO SCH (21:28)
[2016-10-27] MEDS: NORMAL SALINE 1000 ML 1,000 ML IV PRN (05:26)
[2016-10-27 05:35] LABS: ABSOLUTE EOSINOPHILS # (AUTO) 0.3 10^3/uL (0.0-0.6); ABSOLUTE LYMPHOCYTES (AUTO) 2.2 10^3/uL (0.5-4.7); ABSOLUTE MONOCYTES (AUTO) 1.7 10^3/uL (0.1-1.4); ABSOLUTE NEUT (AUTO) 8.2 10^3/uL (1.7-8.2); BASOPHILS % (AUTO) 0.2 % (0-2); EOSINOPHILS % (AUTO) 2.5 % (0-6); HEMATOCRIT 30.1 % (36.0-47.0); HEMOGLOBIN 9.8 g/dL (12.0-15.5); HGB HCT DIFFERENCE -0.7; LYMPHOCYTES % (AUTO) 17.3 % (13-45); MEAN CORPUSCULAR HEMOGLOBIN 26.8 pg (27.0-33.4); MEAN CORPUSCULAR HGB CONC 32.5 g/dL (32.0-36.0); MEAN CORPUSCULAR VOLUME 83 fl (80-97); RED BLOOD COUNT 3.65 10^6/uL (3.72-5.28); RED CELL DISTRIBUTION WIDTH 15.6 % (11.5-14.0); WHITE BLOOD COUNT 12.5 10^3/uL (4.0-10.5)
[2016-10-27 05:53] LABS: ANION GAP 9 (5-19); BLOOD UREA NITROGEN 21 mg/dL (7-20); CALCIUM 9.2 mg/dL (8.4-10.2); CARBON DIOXIDE 25 mmol/L (22-30); CHLORIDE 103 mmol/L (98-107); CREATININE RESULT 1.03 mg/dL (0.52-1.25); GLUCOSE 185 mg/dL (75-110); POTASSIUM 4.6 mmol/L (3.6-5.0); SODIUM 137.1 mmol/L (137-145); URIC ACID 8.6 mg/dL (2.5-7.5)
[2016-10-27 06:09] LABS: C-REACTIVE PROTEIN 206.9 mg/L (<10.0)
[2016-10-27] MEDS: INSULIN LISPRO 100 UNIT/ML 3 ML VIAL SUBCUT PRN ×4 (07:49→22:50)
[2016-10-27] MEDS ORDERED: IPRATROPIUM/ALBUTEROL 0.5-2.5 MG/3 ML AMPUL NEB PRN (09:02)
--- NOTE | 2016-10-27 09:12 | PDOC PROGRESS REPORT ---
Subjective Progress Note for:: 10/27/16 Subjective:: reason for visit: f/u viral illness, abdominal pain, poss pericarditis, ant abd wall hernia hospital course: ROSEANNA HERNANDEZ is a 76 year old female presents from home with sudden onset of epigastric and Rt upper abdominal pain last night after attending [employer]. states she ate chicken and veggies with her before going to [employer] and no symptoms for several hours; only after returning home did the symptoms begin. described as "hardness" across the upper abdomen with asct'd bloating and belching but no nausea or vomiting, chest pain, palpitations , POWELL, dizziness, swollen legs, calf pain, change in bowel habits or character/ consistency of stool, dysuria, difficulty swallowing, recent travel, sick contacts, fevers or chills. notes relieved with Pepto and consuming cake and ice cream, worse when lying on her left side. She reports EGD by dr singleton in 2016 and Bx's confirmed H Pylori but she denies PUD or gastritis at the time. she was treated for 3 wks with "3 medicines, one was an abx but not sure about the rest" and underwent breath test this past friday in her office that showed eradication of the H. Pylori. 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 she's never had a SBO and is unaware of the ventral hernia seen on CT today. eval in ED shows elevated WBCs and "moderate pericardial effusion" with "moderate pericarditis pattern" though no mention of enhancing pericardium, small hiatal hernia, small bowel herniation of anterior pelvic wall without incarceration and small fat containing hernia just distal/below that also without inflammatory changes; ecg shows borderline ST elevation, J point elevation in inferolateral leads and no old for comparison. So, we were asked to admit for acute pericarditis. Surgicalist consulted for the hernia but did not feel related to her presenting complaints or clinical condition and recommended expectant management only at this time. her symptoms markedly improved with conservative management of IVFs with no n/v and abd pain completely resolved within hours. she continues to deny chest pain or palpitations, fevers or chills. However she was noted to be borderline low O2 last night with mild resp distress and dyspnea while lying flat in bed. O2 placed at 1-2L/min with good improvement in her sats and complete resolution of her symptoms. ROS: all systems reviewed, see above, remaining systems negative. Physical Exam Vital Signs: Temp Pulse Resp BP Pulse Ox 99.1 F 92 16 153/63 H 98 10/27/16 04:33 10/27/16 07:00 10/27/16 04:33 10/27/16 04:33 10/27/16 04:33 Intake & Output 10/26/16 10/27/16 10/28/16 06:59 06:59 06:59 Intake Total 2907 Balance 2907 Weight 99.8 kg General appearance: PRESENT: no acute distress, morbidly obese, well-developed, well-nourished Head exam: PRESENT: atraumatic, normocephalic Eye exam: PRESENT: EOMI. ABSENT: conjunctival injection, scleral icterus Mouth exam: PRESENT: moist, neck supple Neck exam: PRESENT: full ROM. ABSENT: JVD, lymphadenopathy, tracheal deviation Respiratory exam: PRESENT: unlabored with new inspiratory crackles at the bases ; no chest wall tenderness or wheezes or antonio rales Cardiovascular exam: PRESENT: no tachycardia - sinus rhythm on monitor, review shows no alarms or arrhythmias Pulses: PRESENT: normal carotid pulses, normal radial pulses, normal dorsalis pedis pul Vascular exam: PRESENT: normal capillary refill GI/Abdominal exam: PRESENT: hernia - non reducible fat containing anterior wall abdominal hernia just left of the umbilicus along the long vertical scar, no overlying erythema or heat, nontender to touch, no bowel sounds in the hernia itself;, normal bowel sounds, soft, tenderness - no epigastric or RUQ tenderness today; other - misshapen by two long vertical scars from prior surgery, large pannus. ABSENT: ascites, distension, firmness, guarding Extremities exam: PRESENT: full ROM, pedal edema - trace ankle edema, no worse. ABSENT: calf tenderness, clubbing Musculoskeletal exam: PRESENT: ambulatory, full ROM Neurological exam: PRESENT: alert, awake, oriented to person, oriented to place , oriented to time, oriented to situation Psychiatric exam: PRESENT: appropriate affect, normal mood Skin exam: PRESENT: dry, warm Results Laboratory Results: 10/27/16 04:41 10/27/16 04:41 10/26/16 10/27/16 10/27/16 15:48 04:41 04:41 WBC 12.5 H RBC 3.65 L Hgb 9.8 L Hct 30.1 L MCV 83 MCH 26.8 L MCHC 32.5 RDW 15.6 H Plt Count 272 Seg Neutrophils % 66.0 Lymphocytes % 17.3 Monocytes % 14.0 H Eosinophils % 2.5 Basophils % 0.2 Absolute Neutrophils 8.2 Absolute Lymphocytes 2.2 Absolute Monocytes 1.7 H Absolute Eosinophils 0.3 Absolute Basophils 0.0 Sodium 137.1 Potassium 4.6 Chloride 103 Carbon Dioxide 25 Anion Gap 9 BUN 21 H Creatinine 1.03 Est GFR ( Amer) > 60 Est GFR (Non-Af Amer) 52 L Glucose 185 H Lactic Acid 1.4 Uric Acid 8.6 H Calcium 9.2 C-Reactive Protein 206.9 H 10/26/16 10/26/16 10/26/16 14:05 14:05 20:00 Creatine Kinase 108 99 CK-MB (CK-2) 0.81 Troponin I < 0.012 10/26/16 20:00 Creatine Kinase CK-MB (CK-2) 0.49 Troponin I < 0.012 Impressions: Chest X-Ray 10/26/16 07:15 IMPRESSION: CARDIAC ENLARGEMENT WITHOUT FAILURE. Assessment & Plan - Diagnosis (1) Acute hypoxemic respiratory failure Is this a current diagnosis for this admission?: YesPlan: new; no prior hx of respiratory disease or tobacco use. probably due to atelectasis based on exam and sedentary state since admission. will ck another CXR, place IS and add prn nebs to loosen her up. I suppose could be part of her viral illness, might develop viral respiratory syndrome. will chg to inpatient and continue treatment noted above. SL IVFs and increase activity (2) Viral illness Is this a current diagnosis for this admission?: YesPlan: I suspect this is source of her presentation in light of her vague symptoms, low grade temp and monocytosis on CBC. continue supportive care. increase activity today. (3) Epigastric abdominal pain Is this a current diagnosis for this admission?: YesPlan: resolved; presenting complaint and unclear etiology. her symptoms don't really fit clearly into any one thing though clearly her recent bout of H Pylori leads me to believe this is more GI than anything. she has a very atypical presentation and non specific lab findings so far. lipase and amylase are negative, LFTs negative, troponin negative while ecg is non specific, no evidence for cell or ischemia as her K and Phos both normal and only mild acidosis and lactic acid normal; cbc shows monocytosis but very mild and no worsening of her chronic anemia and no thrombocytosis or -penia. imaging is nondiagnostic and I think the pericarditis is a stretch and would be atypical symptoms for this, certainly no evidence for tamponade; her hernia is no where near her pain and nontender on attempts to reduce it with no change in her bowel habits and surgeon agrees. possible a viral gastroenteritis. advance her diet, f/u stool studies when available, continue supportive care. (4) Pericarditis Qualifiers: Pericarditis type: unspecified type Chronicity: acute Qualified Code(s): I30.9 - Acute pericarditis, unspecified; M06.9 - Rheumatoid arthritis, unspecified Is this a current diagnosis for this admission?: YesPlan: I do not believe she has pericarditis as her symptoms simply don't align with this diagnosis. I don't doubt that she may have a viral illness due to elevated monocytes. her crp is elevated but nonspecific finding unfortunately, her uric acid is slightly elevated likely due to her CKD and echo - dr rosenbaum shows no pericardial disease and only trace amount of fluid. Ping neg and CK rapidly returned to normal. d/c toradol. (5) Leukocytosis, unspecified Qualifiers: Leukocytosis type: unspecified Qualified Code(s): D72.829 - Elevated white blood cell count, unspecified Is this a current diagnosis for this admission?: YesPlan: mixed bag of neutrophils and monocytes of unclear etiology and significance; certainly could be viral gastroenteritis. trend CBC, other eval as noted above. improved with IVFs only (6) Abdominal hernia without obstruction and without gangrene Qualifiers: Hernia type: incisional Qualified Code(s): K43.2 - Incisional hernia without obstruction or gangrene Is this a current diagnosis for this admission?: YesPlan: clinically silent; per surgery no further workup or treatment warranted at this time, does not appear contributing to her presentation/symptoms (7) Obesity Qualifiers: Obesity type: unspecified obesity type Obesity classification: unspecified obesity classification Serious obesity comorbidity presence: unspecified whether serious comorbidity present Qualified Code(s): E66.9 - Obesity, unspecified Is this a current diagnosis for this admission?: Yes (9) HTN (hypertension) Qualifiers: Hypertension type: essential hypertension Qualified Code(s): I10 - Essential (primary) hypertension Is this a current diagnosis for this admission?: Yes (10) CKD stage 3 secondary to diabetes Is this a current diagnosis for this admission?: Yes (11) Diabetes Qualifiers: Diabetes mellitus type: type 2 Diabetes mellitus complication status: with kidney complications Diabetes mellitus complication detail: with microalbuminuria Diabetes mellitus director long term care insulin use: with [facility] use Qualified Code(s): E11.29 - Type 2 diabetes mellitus with other diabetic kidney complication; R80.9 - Proteinuria, unspecified; Z79.4 - meterman (current) use of insulin Is this a current diagnosis for this admission?: Yes (12) Hypothyroidism Qualifiers: Hypothyroidism type: unspecified Qualified Code(s): E03.9 - Hypothyroidism, unspecified Is this a current diagnosis for this admission?: Yes - Time Time Spent with patient: 25-34 minutes Medications reviewed and adjusted accordingly: Yes Anticipated discharge: Home Within: within 24 hours - Inpatient Certification Based on my medical assessment, after consideration of the patient's comorbidities, presenting symptoms, or acuity I expect that the services needed warrant INPATIENT care.: Yes I certify that my determination is in accordance with my understanding of Medicare's requirements for reasonable and necessary INPATIENT services [42 CFR 412.3e].: Yes Medical Necessity: Significant Comorbidiites Make Outpatient Treatment Too Risky , Need Close Monitoring Due to Risk of Patient Decompensation, Need For Continuous Telemetry Monitoring, Risk of Complication if Not Cared For in Hospital, Other - need for supplemental O2
--- NOTE | 2016-10-27 10:08 | RADIOLOGY REPORT (SQ) ---
EXAM DESCRIPTION: CHEST PA/LAT COMPLETED DATE/TIME: 10/27/2016 9:43 am REASON FOR STUDY: DYSPNEA COMPARISON: 10/26/2016 NUMBER OF VIEWS: Two view. TECHNIQUE: Frontal and lateral radiographic views of the chest acquired. LIMITATIONS: None. FINDINGS: LUNGS AND PLEURA: No opacities, masses or pneumothorax. No pleural effusion. MEDIASTINUM AND HILAR STRUCTURES: No masses. No contour abnormalities. HEART AND VASCULAR STRUCTURES: Heart enlarged without failure. Aorta normal for age. BONES: No acute findings. HARDWARE: None in the chest. OTHER: No other significant finding. IMPRESSION: CARDIAC ENLARGEMENT WITHOUT FAILURE. TECHNICAL DOCUMENTATION: JOB ID: [id number] [employer]- All Rights Reserved
[2016-10-27] MEDS: CARVEDILOL 12.5 MG TABLET PO SCH ×2 (11:08→22:04)
[2016-10-27] MEDS: PANTOPRAZOLE SODIUM 40 MG VIAL IV SCH ×2 (11:09→22:03)
[2016-10-27] MEDS: ENOXAPARIN SODIUM INJ 30 MG/0.3 ML DISP.SYRIN SUBCUT SCH (11:09)
[2016-10-27] MEDS: DOCUSATE SODIUM 100 MG CAPSULE PO SCH (11:09)
[2016-10-27] MEDS: LEVOTHYROXINE SODIUM 0.05 MG TABLET PO SCH (11:09)
[2016-10-27] MEDS ORDERED: FUROSEMIDE 20 MG TABLET PO ONE (11:57)
[2016-10-27] MEDS ORDERED: LOSARTAN POTASSIUM 50 MG TABLET PO ONE (13:00)
--- NOTE | 2016-10-27 13:42 | PDOC PROGRESS REPORT ---
Subjective Progress Note for:: 10/27/16 Subjective:: Feeling better no abdominal pain no nausea Physical Exam Vital Signs: Temp Pulse Resp BP Pulse Ox 99.3 F 97 16 137/62 H 97 10/27/16 12:10 10/27/16 12:10 10/27/16 12:10 10/27/16 12:10 10/27/16 12:10 GI/Abdominal exam: PRESENT: other - Abdomen soft nontender Reducible incisional hernia Results Impressions: Abdomen/Pelvis CT 10/26/16 05:15 IMPRESSION: 1. Small bowel herniation of the anterior pelvic wall without evidence of further complication. 2. Moderate pericarditis pattern. Chest X-Ray 10/27/16 00:00 IMPRESSION: CARDIAC ENLARGEMENT WITHOUT FAILURE. Assessment & Plan - Plan Summary Plan Summary: Uncmplicated lower abdominal hernia no surgical intervention at this time , continue with Pericarditis management follow in surgery clinic 2-3 weeks
[2016-10-28 05:07] LABS: ABSOLUTE BASOPHILS # (AUTO) 0.1 10^3/uL (0.0-0.2); ABSOLUTE EOSINOPHILS # (AUTO) 0.4 10^3/uL (0.0-0.6); ABSOLUTE MONOCYTES (AUTO) 1.6 10^3/uL (0.1-1.4); ABSOLUTE NEUT (AUTO) 8.7 10^3/uL (1.7-8.2); BASOPHILS % (AUTO) 0.6 % (0-2); EOSINOPHILS % (AUTO) 3.2 % (0-6); HEMATOCRIT 29.7 % (36.0-47.0); HEMOGLOBIN 9.9 g/dL (12.0-15.5); LYMPHOCYTES % (AUTO) 15.9 % (13-45); MEAN CORPUSCULAR HEMOGLOBIN 27.5 pg (27.0-33.4); MEAN CORPUSCULAR HGB CONC 33.2 g/dL (32.0-36.0); MEAN CORPUSCULAR VOLUME 83 fl (80-97); MONOCYTES % (AUTO) 12.1 % (3-13); RED BLOOD COUNT 3.59 10^6/uL (3.72-5.28); RED CELL DISTRIBUTION WIDTH 15.1 % (11.5-14.0); SEGMENTED NEUTROPHILS % (AUTO) 68.2 % (42-78); WHITE BLOOD COUNT 12.8 10^3/uL (4.0-10.5)
[2016-10-28 05:24] LABS: ANION GAP 11 (5-19); BLOOD UREA NITROGEN 23 mg/dL (7-20); CALCIUM 9.2 mg/dL (8.4-10.2); CARBON DIOXIDE 23 mmol/L (22-30); CHLORIDE 102 mmol/L (98-107); CREATININE RESULT 0.96 mg/dL (0.52-1.25); GLUCOSE 204 mg/dL (75-110); POTASSIUM 4.5 mmol/L (3.6-5.0); SODIUM 136.1 mmol/L (137-145)
[2016-10-28 06:00] LABS: C-REACTIVE PROTEIN 211.7 mg/L (<10.0)
[2016-10-28] MEDS: INSULIN LISPRO 100 UNIT/ML 3 ML VIAL SUBCUT PRN (07:15)
--- NOTE | 2016-10-28 09:11 | PDOC DISCHARGE SUMMARY ---
General - Admit/Disc Date/PCP Admission Date/Primary Care Provider: 10/27/16 08:50 Discharge Date: 10/28/16 - Discharge Diagnosis (1) Abdominal hernia without obstruction and without gangrene Is this a current diagnosis for this admission?: Yes (2) CKD stage 3 secondary to diabetes Is this a current diagnosis for this admission?: Yes (3) Epigastric abdominal pain Is this a current diagnosis for this admission?: Yes (4) Pericardial effusion without cardiac tamponade Is this a current diagnosis for this admission?: Yes - Additional Information Resuscitation Status: Full Code Discharge Diet: Diabetic Discharge Activity: Activity As Tolerated Home Medications: Aspirin [Aspirin 81 mg Chewable Tablet] 81 mg PO DAILY 10/26/16 Carvedilol [Coreg 12.5 mg Tablet] 12.5 mg PO Q12 10/26/16 Insulin Glargine,Hum.rec.anlog [Lantus Solostar] 66 unit SQ DAILY 10/26/16 Levothyroxine Sodium [Synthroid] 50 mcg PO DAILY 10/26/16 Losartan/Hydrochlorothiazide [Hyzaar 100-25 Tablet] 1 each PO DAILY 10/26/16 Metformin HCl [Glucophage] 1,000 mg PO Q12 10/26/16 History of Present Illness History of Present Illness: ROSEANNA HERNANDEZ is a 76 year old female Hospital Course Hospital Course: The patient did well after the hospitalization. She did not have any recurrence of abdominal pain. The accidental findings or pericardial effusion showed a small pericardial effusion on echocardiogram which was nonsignificant. The patient did not have any signs of symptoms or pericarditis. She did quite well. She had good bowel movements. She did not have any recurrence of abdominal pain Physical Exam Vital Signs: Temp Pulse Resp BP Pulse Ox 98.2 F 92 19 147/64 H 98 10/28/16 07:49 10/28/16 07:49 10/28/16 07:49 10/28/16 07:49 10/28/16 07:49 Intake & Output 10/27/16 10/28/16 10/29/16 06:59 06:59 06:59 Intake Total 1395 Balance 1395 Weight 100.3 kg General appearance: PRESENT: no acute distress Head exam: PRESENT: atraumatic Eye exam: PRESENT: conjunctiva pink Neck exam: ABSENT: carotid bruit Respiratory exam: PRESENT: clear to auscultation hermelinda Cardiovascular exam: PRESENT: RRR, +S1, +S2. ABSENT: rubs Pulses: PRESENT: +1 pedal pulses bilateral Vascular exam: PRESENT: normal capillary refill GI/Abdominal exam: PRESENT: normal bowel sounds, soft Extremities exam: PRESENT: full ROM Musculoskeletal exam: PRESENT: ambulatory Neurological exam: PRESENT: alert, awake Results Laboratory Results: 10/28/16 04:33 10/28/16 04:33 10/27/16 10/27/16 10/28/16 16:06 16:06 04:33 WBC 12.8 H RBC 3.59 L Hgb 9.9 L Hct 29.7 L MCV 83 MCH 27.5 MCHC 33.2 RDW 15.1 H Plt Count 244 Seg Neutrophils % 68.2 Lymphocytes % 15.9 Monocytes % 12.1 Eosinophils % 3.2 Basophils % 0.6 Absolute Neutrophils 8.7 H Absolute Lymphocytes 2.0 Absolute Monocytes 1.6 H Absolute Eosinophils 0.4 Absolute Basophils 0.1 Sodium Potassium Chloride Carbon Dioxide Anion Gap BUN Creatinine Est GFR ( Amer) Est GFR (Non-Af Amer) Glucose Calcium C-Reactive Protein Stool Occult Blood NEGATIVE Stool for White Cells NO WBCs SEEN 10/28/16 04:33 WBC RBC Hgb Hct MCV MCH MCHC RDW Plt Count Seg Neutrophils % Lymphocytes % Monocytes % Eosinophils % Basophils % Absolute Neutrophils Absolute Lymphocytes Absolute Monocytes Absolute Eosinophils Absolute Basophils Sodium 136.1 L Potassium 4.5 Chloride 102 Carbon Dioxide 23 Anion Gap 11 BUN 23 H Creatinine 0.96 Est GFR ( Amer) > 60 Est GFR (Non-Af Amer) 56 L Glucose 204 H Calcium 9.2 C-Reactive Protein 211.7 H Stool Occult Blood Stool for White Cells Impressions: Abdomen/Pelvis CT 10/26/16 05:15 IMPRESSION: 1. Small bowel herniation of the anterior pelvic wall without evidence of further complication. 2. Moderate pericarditis pattern. Chest X-Ray 10/27/16 00:00 IMPRESSION: CARDIAC ENLARGEMENT WITHOUT FAILURE.
[2016-10-28] MEDS: LEVOTHYROXINE SODIUM 0.05 MG TABLET PO SCH (09:57)
[2016-10-28] MEDS: DOCUSATE SODIUM 100 MG CAPSULE PO SCH (09:57)
[2016-10-28] MEDS: PANTOPRAZOLE SODIUM 40 MG VIAL IV SCH (09:58)
[2016-10-28] MEDS: ENOXAPARIN SODIUM INJ 30 MG/0.3 ML DISP.SYRIN SUBCUT SCH (09:58)
[2016-10-28] MEDS: CARVEDILOL 12.5 MG TABLET PO SCH (09:58)
[2016-10-28] MEDS ORDERED: LOSARTAN POTASSIUM 50 MG TABLET PO SCH (10:00)
[2016-10-28 10:22] VITALS: BP 150/81
== END 2016-10-28 11:17 | disposition home or self-care (01) | DRG 394 ==
LOC: ER 04:45 → UNDOADMIN 07:56 → EH 07:56 → 3N 08:44 → INTOOBSV 08:44 → 3N 09:06 → EH 09:06 → OBSVTOIN 10-27 08:50
PROVIDERS: ADMIT Internal Medicine; ATTEND Internal Medicine
DX: K43.2 Incisional hernia without obstruction or gangrene (principal); I31.3 Pericardial effusion (noninflammatory); Z68.41 Body mass index [BMI] 40.0-44.9, adult; E66.9 Obesity, unspecified; I12.9 Hypertensive chronic kidney disease with stage 1 through stage 4 chronic kidney disease, or unspecified chronic kidney disease; E11.22 Type 2 diabetes mellitus with diabetic chronic kidney disease; N18.3 Chronic kidney disease, stage 3 (moderate); E03.9 Hypothyroidism, unspecified; K21.9 Gastro-esophageal reflux disease without esophagitis; K44.9 Diaphragmatic hernia without obstruction or gangrene; M19.90 Unspecified osteoarthritis, unspecified site; Z79.4 Long term (current) use of insulin; Z79.84 Long term (current) use of oral hypoglycemic drugs; Z79.899 Other long term (current) drug therapy; Z79.82 Long term (current) use of aspirin; Z90.49 Acquired absence of other specified parts of digestive tract; Z90.710 Acquired absence of both cervix and uterus
CPT/HCPCS: 36415; 71020; 74177; 80048; 80053; 81001; 82150; 82272; 82550; 82553; 82962; 83036; 83605; 83690; 83735; 83880; 84100; 84443; 84484; 84550; 85025; 85610; 85730; 86140; 87045; 87205; 89055; 93005; 93010; 93306; 94799; 99285; G0378; J1650; J1815; J3490; J7030; S0164

== ENCOUNTER → 2016-12-27 | Outpatient (CLI) | payer MEDICARE, BC, OTHER ==
[2016-12-27 09:14] LABS: ABSOLUTE BASOPHILS # (AUTO) 0.1 10^3/uL (0.0-0.2); ABSOLUTE EOSINOPHILS # (AUTO) 0.3 10^3/uL (0.0-0.6); ABSOLUTE LYMPHOCYTES (AUTO) 2.5 10^3/uL (0.5-4.7); ABSOLUTE NEUT (AUTO) 9.7 10^3/uL (1.7-8.2); BASOPHILS % (AUTO) 0.8 % (0-2); EOSINOPHILS % (AUTO) 2.1 % (0-6); HEMATOCRIT 32.7 % (36.0-47.0); HEMOGLOBIN 10.8 g/dL (12.0-15.5); HGB HCT DIFFERENCE -0.3; LYMPHOCYTES % (AUTO) 18.2 % (13-45); MEAN CORPUSCULAR HEMOGLOBIN 26.7 pg (27.0-33.4); MEAN CORPUSCULAR HGB CONC 32.9 g/dL (32.0-36.0); MEAN CORPUSCULAR VOLUME 81 fl (80-97); MONOCYTES % (AUTO) 7.5 % (3-13); RED BLOOD COUNT 4.03 10^6/uL (3.72-5.28); RED CELL DISTRIBUTION WIDTH 16.3 % (11.5-14.0); SEGMENTED NEUTROPHILS % (AUTO) 71.4 % (42-78); WHITE BLOOD COUNT 13.6 10^3/uL (4.0-10.5)
[2016-12-27 09:39] LABS: ALANINE AMINOTRANSFERASE 25 U/L (9-52); ALBUMIN 3.8 g/dL (3.5-5.0); ALKALINE PHOSPHATASE 152 U/L (38-126); ANION GAP 12 (5-19); ASPARTATE AMINO TRANSFERASE 15 U/L (14-36); BILIRUBIN,DIRECT 0.3 mg/dL (0.0-0.4); BILIRUBIN,TOTAL 0.3 mg/dL (0.2-1.3); BLOOD UREA NITROGEN 25 mg/dL (7-20); CARBON DIOXIDE 27 mmol/L (22-30); CHLORIDE 103 mmol/L (98-107); CHOLESTEROL 166.77 mg/dL (0-200); CREATININE RESULT 1.17 mg/dL (0.52-1.25); Direct HDL 48 mg/dL (>40); GLUCOSE 157 mg/dL (75-110); POTASSIUM 4.7 mmol/L (3.6-5.0); SODIUM 142.1 mmol/L (137-145); TOTAL PROTEIN 6.8 g/dL (6.3-8.2); TRIGLYCERIDES 135 mg/dL (<150)
[2016-12-27 09:49] LABS: DIRECT LDL 93 mg/dL (<100)
== END ==
LOC: OD 08:07
PROVIDERS: ATTEND Internal Medicine
DX: E11.9 Type 2 diabetes mellitus without complications (principal); E78.5 Hyperlipidemia, unspecified; I10 Essential (primary) hypertension; R53.83 Other fatigue
CPT/HCPCS: 36415; 80053; 80061; 83036; 84443; 85025

== ENCOUNTER → 2017-02-13 | Outpatient (CLI) | payer MEDICARE, BC ==
--- NOTE | 2017-02-13 16:13 | WOMENS IMAGING REPORT ---
EXAM DESCRIPTION: BILAT SCREENING MAMMO W/CAD COMPLETED DATE/TIME: 02/13/2017 10:17 am REASON FOR STUDY: SCREENING MAMMO Z12.31 ENCNTR SCREEN MAMMOGRAM FOR MALIGNANT NEOPLASM OF EVELINA COMPARISON: [id number] TECHNIQUE: Standard craniocaudal and mediolateral oblique views of each breast recorded using digita l acquisition. LIMITATIONS: None. FINDINGS: RIGHT BREAST MASSES: No suspicious masses. CALCIFICATIONS: No new or suspicious calcifications. ARCHITECTURAL DISTORTION: None. DEVELOPING DENSITY: None. ASYMMETRY: None noted. OTHER: No other significant findings. LEFT BREAST MASSES: No suspicious masses. CALCIFICATIONS: Approximately 4 o'clock about 9 cm deep to the nipple. ARCHITECTURAL DISTORTION: None. DEVELOPING DENSITY: None. ASYMMETRY: None noted. OTHER: No other significant findings. Read with the assistance of CAD. .[facility] - R2 Cenova Version 1.3 .[facility] Imaging - R2 Cenova Version 1.3 .[facility] Imaging - R2 Cenova Version 2.4 .[facility] - R2 Cenova Version 2.4 .[facility] - R2 Facility Maintenance Technician Version 9.2 IMPRESSION: Calcifications left breast. BREAST DENSITY: b. There are scattered areas of fibroglandular density. BIRAD: 0 Incomplete: Needs Additional Imaging Evaluation and/or prior Mammograms for Comparison. RECOMMENDATION: RECOMMENDED FOLLOW-UP: True lateral and magnification views of the left breast. The patient will be contacted for additional imaging. COMMENT: The patient has been notified of the results by letter per SA requirements. Additional no tification policies are in place for contacting patient with suspicious or incomplete findings. Quality ID #[id number]: The [employer] recommends an annual screening mammogram for women aged 40 years or over. This facility utilizes a reminder system to ensure that all patients receive reminder letters, and/or direct phone calls for appointments. This includes reminders for routine scr eening mammograms, diagnostic mammograms, or other Breast Imaging Interventions when appropriate. Th is patient will be placed in the appropriate reminder system. The [employer] (ACR) has developed recommendations for screening MRI of the breast s in certain patient populations, to be used in conjunction with mammography. Breast MRI surveillanc e may be appropriate for women with more than 20% lifetime risk of developing breast cancer as deter mined by genetic testing, significant family history of the disease, or history of mantle radiation f or Hodgkins Disease. ACR Practice Guidelines 2008. TECHNICAL DOCUMENTATION: FINDING NUMBER: (1) ASSESSMENT: (1) JOB ID: [id number] [facility]- All Rights Reserved
== END ==
LOC: WI 09:51
PROVIDERS: ATTEND Obstetrics & Gynecology Gynecology
DX: Z12.31 Encounter for screening mammogram for malignant neoplasm of breast (principal)
CPT/HCPCS: 77067; G0202

== ENCOUNTER → 2017-03-05 | Outpatient (CLI) | payer MEDICARE, BC ==
--- NOTE | 2017-03-06 13:47 | WOMENS IMAGING REPORT ---
EXAM DESCRIPTION: LEFT DIAGNOSTIC MAMMO W/CAD COMPLETED DATE/TIME: 03/05/2017 9:59 am REASON FOR STUDY: CALCIFICATIONS; R92.0 R92.2 INCONCLUSIVE MAMMOGRAM COMPARISON: 02/13/2017, 02/12/2016, 02/09/2015, 12/22/2013, 12/21/2012. TECHNIQUE: Additional images include a true lateral image and magnification MLO and CC images. LIMITATIONS: None. FINDINGS: BREAST: left MASSES: No suspicious masses. CALCIFICATIONS: Calcifications in the lower outer quadrant. On magnification views these are fairly discrete and relatively coarse. These have slowly progressed over the past several years. ARCHITECTURAL DISTORTION: None. DEVELOPING DENSITY: None. ASYMMETRY: None noted. OTHER: No other significant findings. IMPRESSION: Calcifications in the lower outer left breast which are not particularly pleomorphic but have gradually increased over several years. Biopsy should be considered. BREAST DENSITY: b. There are scattered areas of fibroglandular density. BIRAD: 4A-Suspicious abnormality: Lesion which may require intervention with low suspicion for pablo garcia. RECOMMENDATION: RECOMMENDED FOLLOW UP: Birads 4: Biopsy should be performed in the absence of clinic al contraindication. SPECIFIC INTERVENTION/IMAGING/CONSULTATION RECOMMENDED:The suspicious finding(s) amenable to stereo-t actic-guided vacuum assisted core biopsy. COMMUNICATION:The imaging findings were not discussed with the patient. Her referring provider has be en notified of the findings. COMMENT: The patient has been notified of the results by letter per SA requirements. Additional no tification policies are in place for contacting patient with suspicious or incomplete findings. Quality ID #[id number]: The [employer] recommends an annual screening mammogram for women aged 40 years or over. This facility utilizes a reminder system to ensure that all patients receive reminder letters, and/or direct phone calls for appointments. This includes reminders for routine scr eening mammograms, diagnostic mammograms, or other Breast Imaging Interventions when appropriate. Th is patient will be placed in the appropriate reminder system. The [employer] (ACR) has developed recommendations for screening MRI of the breast s in certain patient populations, to be used in conjunction with mammography. Breast MRI surveillanc e may be appropriate for women with more than 20% lifetime risk of developing breast cancer as deter mined by genetic testing, significant family history of the disease, or history of mantle radiation f or Hodgkins Disease. ACR Practice Guidelines 2008. TECHNICAL DOCUMENTATION: FINDING NUMBER: (1) ASSESSMENT: (1) JOB ID: [id number] [employer]- All Rights Reserved
== END ==
LOC: WI 08:45
PROVIDERS: ATTEND Obstetrics & Gynecology Gynecology
DX: R92.0 Mammographic microcalcification found on diagnostic imaging of breast (principal)
CPT/HCPCS: G0206-52

== ENCOUNTER → 2017-05-08 | Day surgery (SDC) | payer MEDICARE, BC ==
--- NOTE | 2017-05-08 10:36 | Operative Report ---
Operative Report DATE OF SURGERY: 05/08/17 PREOPERATIVE DIAGNOSIS: Microcalcifications central aspect left breast. Microcalcifications in the central aspect left breast POSTOPERATIVE DIAGNOSIS: Same OPERATION: 1. Stereotactically directed incisional myotomy core biopsies left breast microcalcifications. 2. Placement of clip marker. 3. Interpretation of specimen radiograph, and intraoperative mammography SURGEON: AMBER COCHRAN ANESTHESIA: Local TISSUE REMOVED OR ALTERED: Coarse left breast INTRAOPERATIVE FINDINGS: None PROCEDURE: Patient was seen in the holding area then taken to the radiology suite where the patient was placed in supine position, left arm abducted, left breast placed in compression. The central cluster of microcalcifications was localized using a caudal cranial approach. The left breast placed in compression. Surgical plan surgical timeout were conducted. Surface of the left breast was prepped with Betadine and anesthetized 1% plain lidocaine. Mammotomy was made with 11 blade, mammotome advanced the appropriate depth. Pre-and post fire films showed good alignment between the microcalcifications in the mammotome. We performed a series of core biopsies approximately 13 cores obtained in a circumferential fashion, well tolerated by the patient, and no significant bleeding. Specimens placed on a core tainer, imaged using the portable imaging device, with retention of microcalcifications in the target specimens. Placed a post biopsy clip marker into the biopsy cavity, with post deployment imaging showing retention of clip in the breast cavity. Mammotome was removed, patient tolerated procedure well. Localize compression continued to the left breast. Discharge instructions provided.
--- NOTE | 2017-05-08 10:37 | PDOC DISCHARGE SUMMARY ---
Discharge Summary (SDC) - Discharge Final Diagnosis: Microcalcifications left breast Date of Surgery: 05/08/17 Discharge Date: 05/08/17 Condition: Good Treatment or Instructions: Patient will be discharged home; instructed to wear supportive bra; take Tylenol Motrin as needed pain; follow-up with Dr. Obrien [place] [facility] in 1-2 weeks. Referrals: AMBER OBRIEN MD [Primary Care Provider] - Discharge Diet: As Tolerated Discharge Activity: Activity As Tolerated Home Care Assistance: None Needed Report the Following to Your Physician Immediately: Shortness of Breath, Increase in Pain, Fever over 101 Degrees
--- NOTE | 2017-05-20 08:53 | WOMENS IMAGING REPORT ---
EXAM DESCRIPTION: STEREO BREAST BX; LEFT DIG DX MAMMO NO CHG COMPLETED DATE/TIME: 05/08/2017 11:24 am; 05/08/2017 11:25 am REASON FOR STUDY: R92.0 MAMMOGRAPHIC MICROCALCIFICATION FOUND ON DX IMAGING OF BRST; POST LT STEREO R92.0 MAMMOGRAPHIC MICROCALCIFICATION FOUND ON DX IMAGING OF COMPARISON: Multiple previous LIMITATIONS: None. PROCEDURE: Vacuum-assisted stereotactic-guided biopsy of the lesion in the left breast performed by Dr. Obrien who also targeted the lesion. Using stereotactic guidance, a vacuum-assisted core biopsy of the targeted lesion was performed. A p ellet clip was deployed at the biopsy site. Post procedure image reveals the clip at the biopsy site . TECHNIQUE: Images from the stereotactic unit acquired during the procedure. Specimen radiography performed. Yes. Post- procedure image acquired post-clip placement. Yes. Post procedure 2 view mammograms performed in the mammography suite. Yes. FINDINGS: SPECIMEN RADIOGRAPH:Calcifications identified.. POST PROCEDURE MAMMOGRAMS FOR MARKER PLACEMENT: Yes. POST PROCEDURE MAMMOGRAM: Clip is in expected location. No significant hematoma. PATHOLOGY: Sclerosing fibroadenoma CONCORDANT: Yes. The operating surgeon was notified of the findings. IMPRESSION: SUCCESSFUL STEREOTACTIC-GUIDED BIOPSY OF LESION IN THE LEFT BREAST. BIOPSY RESULTS ARE CONCORDANT WITH IMAGING FINDINGS. FOLLOW-UP: RETURN TO SCREENING COMMENT: BI-RADS 2 Benign findings. TECHNICAL DOCUMENTATION: JOB ID: [id number] [employer]- All Rights Reserved
== END ==
LOC: RAD 09:11
PROVIDERS: ATTEND Surgery
PROC: 0HBU3ZX Excision of Left Breast, Percutaneous Approach, Diagnostic (ICD-10-PCS; principal; 2017-05-08)
DX: R92.0 Mammographic microcalcification found on diagnostic imaging of breast (principal); D24.2 Benign neoplasm of left breast
CPT/HCPCS: 19081; 88305

== ENCOUNTER → 2017-07-28 | Outpatient (CLI) | payer MEDICARE, BC ==
[2017-07-28 08:50] LABS: ABSOLUTE EOSINOPHILS # (AUTO) 0.3 10^3/uL (0.0-0.6); ABSOLUTE LYMPHOCYTES (AUTO) 2.1 10^3/uL (0.5-4.7); ABSOLUTE NEUT (AUTO) 6.9 10^3/uL (1.7-8.2); BASOPHILS % (AUTO) 0.3 % (0-2); EOSINOPHILS % (AUTO) 2.8 % (0-6); HEMATOCRIT 33.7 % (36.0-47.0); HEMOGLOBIN 10.9 g/dL (12.0-15.5); LYMPHOCYTES % (AUTO) 20.7 % (13-45); MEAN CORPUSCULAR HEMOGLOBIN 26.9 pg (27.0-33.4); MEAN CORPUSCULAR HGB CONC 32.3 g/dL (32.0-36.0); MEAN CORPUSCULAR VOLUME 83 fl (80-97); MONOCYTES % (AUTO) 9.4 % (3-13); PLATELET COUNT 308 10^3/uL (150-450); RED BLOOD COUNT 4.06 10^6/uL (3.72-5.28); SEGMENTED NEUTROPHILS % (AUTO) 66.8 % (42-78); TOTAL CELLS COUNTED % (AUTO) 100 %; WHITE BLOOD COUNT 10.4 10^3/uL (4.0-10.5)
[2017-07-28 09:06] LABS: ALANINE AMINOTRANSFERASE 24 U/L (9-52); ALKALINE PHOSPHATASE 133 U/L (38-126); ANION GAP 14 (5-19); ASPARTATE AMINO TRANSFERASE 17 U/L (14-36); BILIRUBIN,DIRECT 0.2 mg/dL (0.0-0.4); BILIRUBIN,TOTAL 0.2 mg/dL (0.2-1.3); BLOOD UREA NITROGEN 36 mg/dL (7-20); CALCIUM 9.4 mg/dL (8.4-10.2); CARBON DIOXIDE 32 mmol/L (22-30); CHLORIDE 100 mmol/L (98-107); CHOLESTEROL 193.59 mg/dL (0-200); GLUCOSE 117 mg/dL (75-110); POTASSIUM 4.2 mmol/L (3.6-5.0); SODIUM 145.6 mmol/L (137-145); TRIGLYCERIDES 255 mg/dL (<150)
[2017-07-28 09:17] LABS: DIRECT LDL 107 mg/dL (<100)
== END ==
LOC: OD 07:54
PROVIDERS: ATTEND Family Medicine Geriatric Medicine
DX: E78.5 Hyperlipidemia, unspecified (principal); E11.9 Type 2 diabetes mellitus without complications; I10 Essential (primary) hypertension; M19.90 Unspecified osteoarthritis, unspecified site; R53.83 Other fatigue; K21.9 Gastro-esophageal reflux disease without esophagitis
CPT/HCPCS: 36415; 80053; 80061; 83036; 84443; 85025

== ENCOUNTER → 2017-10-28 | Outpatient (CLI) | payer MEDICARE, BC ==
[2017-10-28 13:50] LABS: HEMATOCRIT 33.6 % (36.0-47.0); HEMOGLOBIN 10.7 g/dL (12.0-15.5); MEAN CORPUSCULAR HEMOGLOBIN 26.2 pg (27.0-33.4); MEAN CORPUSCULAR HGB CONC 31.8 g/dL (32.0-36.0); MEAN CORPUSCULAR VOLUME 83 fl (80-97); PLATELET COUNT 355 10^3/uL (150-450); RED BLOOD COUNT 4.08 10^6/uL (3.72-5.28); RED CELL DISTRIBUTION WIDTH 15.1 % (11.5-14.0); WHITE BLOOD COUNT 12.2 10^3/uL (4.0-10.5)
[2017-10-28 13:56] LABS: APPEARANCE,URINE CLEAR; BILIRUBIN,URINE NEGATIVE (NEGATIVE); COLOR,URINE YELLOW; GLUCOSE, URINE NEGATIVE (NEGATIVE); KETONES,URINE NEGATIVE (NEGATIVE); LEUKOCYTE ESTERASE,URINE TRACE (NEGATIVE); NITRITE,URINE NEGATIVE (NEGATIVE); PROTEIN,URINE NEGATIVE (NEGATIVE); URINE SPECIFIC GRAVITY 1.009; UROBILINOGEN,URINE NEGATIVE mg/dL (<2.0)
[2017-10-28 14:01] LABS: ANION GAP 16 (5-19); BLOOD UREA NITROGEN 29 mg/dL (7-20); CALCIUM 9.6 mg/dL (8.4-10.2); CARBON DIOXIDE 29 mmol/L (22-30); CHLORIDE 100 mmol/L (98-107); GLUCOSE 108 mg/dL (75-110); POTASSIUM 4.6 mmol/L (3.6-5.0); SODIUM 144.9 mmol/L (137-145)
== END ==
LOC: OD 13:10
PROVIDERS: ATTEND Internal Medicine Nephrology
DX: N18.3 Chronic kidney disease, stage 3 (moderate) (principal); E11.9 Type 2 diabetes mellitus without complications; E83.42 Hypomagnesemia; R80.9 Proteinuria, unspecified
CPT/HCPCS: 36415; 80048; 81001; 83735; 85027

== ENCOUNTER → 2017-10-31 | Outpatient (CLI) | payer MEDICARE, BC | LOC: OD 13:46 | PROVIDERS: ATTEND Internal Medicine Nephrology | DX: E83.42 Hypomagnesemia (principal) | CPT/HCPCS: 36415; 83735 ==

== ENCOUNTER → 2017-11-18 | Outpatient (CLI) | payer MEDICARE, BC ==
--- NOTE | 2017-11-18 13:35 | WOMENS IMAGING REPORT ---
EXAM DESCRIPTION: LEFT DIAGNOSTIC MAMMO W/CAD COMPLETED DATE/TIME: 11/18/2017 10:22 am REASON FOR STUDY: MICROCALCIFICATIONS R92.0 MAMMOGRAPHIC MICROCALCIFICATION FOUND ON DX IMAGING OF COMPARISON: Multiple since 2008 TECHNIQUE: Standard craniocaudal, 90 mediolateral and mediolateral oblique images of the breast rec orded with digital acquisition. LIMITATIONS: None. FINDINGS: BREAST: Left MASSES: No suspicious masses. CALCIFICATIONS: Benign breast parenchymal calcifications are present. Stereotactic biopsy clip in th e deep central left breast ARCHITECTURAL DISTORTION: None. DEVELOPING DENSITY: None. ASYMMETRY: None noted. OTHER: No other significant findings. Read with the assistance of CAD. .[facility] - R2 Cenova Version 1.3 .[facility] Imaging - R2 Cenova Version 1.3 .[facility] Imaging - R2 Cenova Version 2.4 .[facility] - R2 Cenova Version 2.4 .[facility] - R2 International Controller Version 9.2 IMPRESSION: No mammographic evidence for malignancy left breast BREAST DENSITY: Choose BIRAD: 2 Benign findings. RECOMMENDATION: RECOMMENDED FOLLOW UP: Please continue yearly bilateral mammographic/tomosynthesis s creening in January 2018. SPECIFIC INTERVENTION/IMAGING/CONSULTATION RECOMMENDED:No additional intervention/ imaging/consultati on needed at this time. COMMUNICATION:Patient notified by letter COMMENT: The patient has been notified of the results by letter per SA requirements. Additional no tification policies are in place for contacting patient with suspicious or incomplete findings. Quality ID #[id number]: The [employer] recommends an annual screening mammogram for women aged 40 years or over. This facility utilizes a reminder system to ensure that all patients receive reminder letters, and/or direct phone calls for appointments. This includes reminders for routine scr eening mammograms, diagnostic mammograms, or other Breast Imaging Interventions when appropriate. Th is patient will be placed in the appropriate reminder system. The [employer] (ACR) has developed recommendations for screening MRI of the breast s in certain patient populations, to be used in conjunction with mammography. Breast MRI surveillanc e may be appropriate for women with more than 20% lifetime risk of developing breast cancer as deter mined by genetic testing, significant family history of the disease, or history of mantle radiation f or Hodgkins Disease. ACR Practice Guidelines 2008. TECHNICAL DOCUMENTATION: FINDING NUMBER: (1) ASSESSMENT: (1) JOB ID: [id number] [employer]- All Rights Reserved Reading location - IP/workstation name: [email or web address]
== END ==
LOC: WI 09:54
PROVIDERS: ATTEND Surgery
DX: R92.0 Mammographic microcalcification found on diagnostic imaging of breast (principal)

== ENCOUNTER → 2017-12-05 | Outpatient (CLI) | payer MEDICARE, BC ==
[2017-12-05 14:03] LABS: HEMATOCRIT 33.6 % (36.0-47.0); MEAN CORPUSCULAR HEMOGLOBIN 26.9 pg (27.0-33.4); MEAN CORPUSCULAR HGB CONC 32.7 g/dL (32.0-36.0); MEAN CORPUSCULAR VOLUME 82 fl (80-97); PLATELET COUNT 368 10^3/uL (150-450); RED CELL DISTRIBUTION WIDTH 14.7 % (11.5-14.0)
[2017-12-05 14:34] LABS: ANION GAP 13 (5-19); BLOOD UREA NITROGEN 39 mg/dL (7-20); CALCIUM 10.4 mg/dL (8.4-10.2); CARBON DIOXIDE 32 mmol/L (22-30); CHLORIDE 99 mmol/L (98-107); GLUCOSE 46 mg/dL (75-110); POTASSIUM 4.8 mmol/L (3.6-5.0); SODIUM 143.6 mmol/L (137-145)
== END ==
LOC: OD 12:53
PROVIDERS: ATTEND Internal Medicine Nephrology
DX: N18.3 Chronic kidney disease, stage 3 (moderate) (principal); E11.9 Type 2 diabetes mellitus without complications; D64.9 Anemia, unspecified; E83.42 Hypomagnesemia
CPT/HCPCS: 36415; 80048; 83735; 85027

== ENCOUNTER → 2018-02-24 | Outpatient (CLI) | payer MEDICARE, BC ==
--- NOTE | 2018-02-24 12:06 | WOMENS IMAGING REPORT ---
EXAM DESCRIPTION: 3D SCREENING MAMMO BILAT COMPLETED DATE/TIME: 02/24/2018 11:03 am REASON FOR STUDY: BILATERAL SCREENING MAMMO 3D/ Z12.31 Z12.31 ENCNTR SCREEN MAMMOGRAM FOR MALIGNANT NEOPLASM OF EVELINA COMPARISON: Multiple since 2008 TECHNIQUE: Standard craniocaudal and mediolateral oblique views of each breast recorded using digita l acquisition and breast tomosynthesis. LIMITATIONS: None. FINDINGS: No masses, calcifications or architectural distortion. No areas of suspicion. Read with the assistance of CAD. .[facility] - R2 Cenova Version 1.3 .[facility] Imaging - R2 Cenova Version 1.3 .[facility] Imaging - R2 Cenova Version 2.4 .[facility] - R2 Cenova Version 2.4 .[facility] - R2 Territory Account Executive Version 9.2 IMPRESSION: NORMAL MAMMOGRAM. BIRADS 1. BREAST DENSITY: b. There are scattered areas of fibroglandular density. BIRAD: 1 NEGATIVE RECOMMENDATION: ROUTINE SCREENING Please continue yearly bilateral screening mammography/tomosynthesis in January 2019 COMMENT: The patient has been notified of the results by letter per SA requirements. Additional no tification policies are in place for contacting patient with suspicious or incomplete findings. Quality ID #[id number]: The [employer] recommends an annual screening mammogram for women aged 40 years or over. This facility utilizes a reminder system to ensure that all patients receive reminder letters, and/or direct phone calls for appointments. This includes reminders for routine scr eening mammograms, diagnostic mammograms, or other Breast Imaging Interventions when appropriate. Th is patient will be placed in the appropriate reminder system. The [employer] (ACR) has developed recommendations for screening MRI of the breast s in certain patient populations, to be used in conjunction with mammography. Breast MRI surveillanc e may be appropriate for women with more than 20% lifetime risk of developing breast cancer as deter mined by genetic testing, significant family history of the disease, or history of mantle radiation f or Hodgkins Disease. ACR Practice Guidelines 2008. DBT Technology DBT is a type of tomographic mammography. With conventional mammography, overlapping breast tissue ma y make lesions difficult to detect, even with good compression. DBT uses an x-ray tube that rotates a round the breast, taking images at different angles. These images are then combined to create thin sl ices of the breast that the radiologist can view as a 3D reconstruction. The [employer] unit can perform full-field digital mammograms (2D imaging); or DBT (3D imaging); or both, in a combination mode that quickly performs both the mammogram and the tomosynthesis scan while the breast is still compressed. PQRS 6045F: Fluoroscopic imaging is not utilized for breast tomosynthesis. TECHNICAL DOCUMENTATION: FINDING NUMBER: (1) ASSESSMENT: (1) JOB ID: [id number] [employer]- All Rights Reserved Reading location - IP/workstation name: [email or web address]
== END ==
LOC: WI 10:23
PROVIDERS: ATTEND Obstetrics & Gynecology Gynecology
DX: Z12.31 Encounter for screening mammogram for malignant neoplasm of breast (principal)
CPT/HCPCS: 77063; 77067

== ENCOUNTER 2018-06-03 08:31 | Day surgery (SDC) | payer MEDICARE, OTHER ==
[~2018-06-03 08:31] MED LIST: KETOROLAC TROMETHAMINE 0.45% 4 DROP/0.4 ML DROPERETTE OS PRN; MIDAZOLAM 2 MG/2 ML INJ ONE
[2018-06-03] MEDS: TROPICAMIDE 1% OPH SOLN 3 ML OS PRN ×3 (09:23→09:45)
[2018-06-03] MEDS: CYCLOPENTOLATE 0.2%/PHENYLEPHRINE 1% OPH SOLN 2 ML OS PRN ×3 (09:23→09:45)
[2018-06-03] MEDS: BESIFLOXACIN HCL 0.6% OPH SUSP 5 ML BOTTLE OS PRN ×4 (09:24→10:27)
[2018-06-03] MEDS: TETRACAINE HCL 0.5% OPH SOLN 0.6 ML DROPERETTE OS PRN ×3 (09:25→10:04)
[2018-06-03] MEDS: CHONDR SU A NA/HYALUR INTRAOC KIT (SURGICARE) ONE ×2 (10:14)
[2018-06-03] MEDS: LIDOCAINE 1% INJ-PF (10 MG/ML) 30 ML SDV ONE ×2 (10:14)
[2018-06-03] MEDS: EPINEPHRINE INJ/PF 1 MG/1 ML AMPULE ONE ×2 (10:14)
[2018-06-03] MEDS: DORZOLAMIDE HCL 2%/TIMOLOL MALEAT 0.5% OPH SOLN 10 ML OS PRN ×2 (10:27)
[2018-06-03] MEDS: TOBRAMYCIN SULFATE/DEXAMETH OPH OINTMENT 3.5 GM ONE ×2 (10:27)
== END 2018-06-03 11:02 | disposition home or self-care (01) ==
LOC: SC 08:31
PROVIDERS: ATTEND Ophthalmology
DX: H25.11 Age-related nuclear cataract, right eye (principal); I10 Essential (primary) hypertension; E78.00 Pure hypercholesterolemia, unspecified; E11.9 Type 2 diabetes mellitus without complications; E05.90 Thyrotoxicosis, unspecified without thyrotoxic crisis or storm; Z79.899 Other long term (current) drug therapy; Z79.84 Long term (current) use of oral hypoglycemic drugs; Z79.82 Long term (current) use of aspirin
CPT/HCPCS: 66984; 82962; V2632; J2250; J3490 ×3; A9270; J0171

== ENCOUNTER 2018-06-17 08:12 | Day surgery (SDC) | payer MEDICARE, OTHER ==
[~2018-06-17 08:12] MED LIST changes: +KETOROLAC TROMETHAMINE 0.45% 4 DROP/0.4 ML DROPERETTE OD PRN; -KETOROLAC TROMETHAMINE 0.45% 4 DROP/0.4 ML DROPERETTE OS PRN; -MIDAZOLAM 2 MG/2 ML INJ ONE
[2018-06-17] MEDS ORDERED: LIDOCAINE 1% INJ-PF (10 MG/ML) 30 ML SDV ONE (08:21)
[2018-06-17] MEDS: TETRACAINE HCL 0.5% OPH SOLN 0.6 ML DROPERETTE OD PRN ×3 (08:58→09:33)
[2018-06-17] MEDS: CYCLOPENTOLATE 0.2%/PHENYLEPHRINE 1% OPH SOLN 2 ML OD PRN ×3 (08:59→09:24)
[2018-06-17] MEDS: TROPICAMIDE 1% OPH SOLN 3 ML OD PRN ×3 (08:59→09:24)
[2018-06-17] MEDS: BESIFLOXACIN HCL 0.6% OPH SUSP 5 ML BOTTLE OD PRN ×4 (09:00→09:51)
[2018-06-17] MEDS ORDERED: FENTANYL CITRATE INJ/PF 100 MCG/2 ML AMPUL ONE (09:08)
[2018-06-17] MEDS ORDERED: MIDAZOLAM 2 MG/2 ML INJ ONE (09:08)
[2018-06-17] MEDS: EPINEPHRINE INJ/PF 1 MG/1 ML AMPULE ONE ×2 (09:36→09:40)
[2018-06-17] MEDS: CHONDR SU A NA/HYALUR INTRAOC KIT (SURGICARE) ONE ×2 (09:37→09:40)
[2018-06-17] MEDS: TOBRAMYCIN SULFATE/DEXAMETH OPH OINTMENT 3.5 GM ONE ×2 (09:37→09:51)
== END 2018-06-17 10:29 | disposition home or self-care (01) ==
LOC: SC 08:12
PROVIDERS: ATTEND Ophthalmology
DX: H25.11 Age-related nuclear cataract, right eye (principal); Z98.42 Cataract extraction status, left eye; E11.9 Type 2 diabetes mellitus without complications; E05.90 Thyrotoxicosis, unspecified without thyrotoxic crisis or storm; I10 Essential (primary) hypertension; E78.00 Pure hypercholesterolemia, unspecified; Z79.82 Long term (current) use of aspirin; Z79.84 Long term (current) use of oral hypoglycemic drugs; Z79.899 Other long term (current) drug therapy
CPT/HCPCS: 66984; 82962; V2632; J2250; J3490 ×3; A9270; J0171; J3010; 142

== ENCOUNTER → 2019-04-05 | Outpatient (CLI) | payer MEDICARE, BC ==
--- NOTE | 2019-04-05 12:16 | WOMENS IMAGING REPORT ---
EXAM DESCRIPTION: 3D SCREENING MAMMO BILAT COMPLETED DATE/TIME: 04/05/2019 11:51 am REASON FOR STUDY: Z12.31 SCREENING MAMMO Z12.31 ENCNTR SCREEN MAMMOGRAM FOR MALIGNANT NEOPLASM OF B RE COMPARISON: Digital bilateral screening mammogram dated 02/13/2017, digital tomosynthesis bilateral screening mammogram dated 02/24/2018 and digital diagnostic left breast mammograms dated 11/18/2017 an d 05/08/2017. EXAM PARAMETERS: Standard craniocaudal and mediolateral oblique views of each breast recorded using digital acquisition and breast tomosynthesis. Read with the assistance of CAD. .[facility] [employer] Periodontal Assistant Version 9.2 LIMITATIONS: None. FINDINGS: Findings present which are benign by mammographic criteria. No suspicious masses, calcific ations or architectural distortion. Pertinent benign findings: Stable calcifications in the breast. Biopsy marker in the left breast sta ble finding. Benign mammographic findings may include one or more of the following: Smooth masses, popcorn/rim/coa rse calcifications, asymmetries, post-procedure changes, and lesions with long-standing stability. IMPRESSION: BENIGN MAMMOGRAPHIC FINDINGS. BIRADS 2 BREAST DENSITY: b. There are scattered areas of fibroglandular density. BIRAD: ASSESSMENT: 2 BENIGN FINDING(S) RECOMMENDATION: 1. ROUTINE SCREENING COMMENT: The patient has been notified of the results by letter per MQSA requirements. Additional no tification policies are in place for contacting patient with suspicious or incomplete findings. Quality ID #[id number]: The [employer] recommends an annual screening mammogram for women aged 40 years or over. This facility utilizes a reminder system to ensure that all patients receive reminder letters, and/or direct phone calls for appointments. This includes reminders for routine scr eening mammograms, diagnostic mammograms, or other Breast Imaging Interventions when appropriate. Th is patient will be placed in the appropriate reminder system. TECHNICAL DOCUMENTATION: FINDING NUMBER: (1) ASSESSMENT: (1) JOB ID: [id number] [employer]- All Rights Reserved Reading location - IP/workstation name: [email or web address]
== END ==
LOC: WI 11:05
PROVIDERS: ATTEND Obstetrics & Gynecology Gynecology
DX: Z12.31 Encounter for screening mammogram for malignant neoplasm of breast (principal)
CPT/HCPCS: 77063; 77067